=== PATIENT | female | born 1955 | race Caucasian/White ===

== ENCOUNTER 2018-11-26 11:31 | Emergency (ER) | payer MEDICARE, BC ==
--- NOTE | 2018-11-26 11:48 | Emergency Department Record ---
History of Present Illness - General Chief complaint: Pain Stated complaint: PAIN/SWELLING ON LEFT SIDE OF HEAD Time Seen by Provider: 11/26/18 11:42 Source: Patient Mode of Arrival: Ambulatory Limitations: No limitations - History of Present Illness Initial comments: 63 yo female presents with a pain and perceived swelling of the left tenriism radiating to the anterior left ear and left jaw. No fever or infection. No dental pain. NO vision changes. She states the symptoms have been ongoing 2 days. She reports she moved from [place] a month ago. 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 She moved to [place] without a current PCP. The hemangioma was discovered about 8 months ago after 4 months of pain. She underwent radiation until last June without improvement. She has seen specialist at her hospital in [place] and at [facility] 2 months ago. She has been told regarding the hemagioma the surgery is too risky and she relates she has been told there are not good options at this time. She states the symptoms of pain and altered nerve sensation are fairly stable and unchanged. MD Complaint: Other Onset/Timin -: Days(s) Location: Other History of Same: No Radiation: None Severity scale (1-10): 10 Quality: Dull Consistency: Constant Improves with: Nothing Worsens with: Nothing Associated Symptoms: Denies other symptoms - Related Data Home Medications Medication Instructions Recorded Confirmed Last Taken Gabapentin [Neurontin] 300 mg PO BID 11/26/18 11/26/18 Unknown Levothyroxine Sodium [Synthroid] 150 mcg PO DAILY 11/26/18 11/26/18 Unknown Omeprazole 40 mg PO DAILY 11/26/18 11/26/18 Unknown Ondansetron HCl [Zofran] 4 mg PO DAILY 11/26/18 11/26/18 Unknown Rivaroxaban [Xarelto] 20 mg PO DAILY 11/26/18 11/26/18 Unknown Rosuvastatin Calcium [Crestor] 10 mg PO DAILY 11/26/18 11/26/18 Unknown Previous Rx's Medication Instructions Recorded Methylprednisolone [Medrol Dose 0 mg PO UD #1 tab.ds.pk 11/26/18 Pack] Allergies Allergy/AdvReac Type Severity Reaction Status Date / Time hydromorphone [From Dilaudid] Allergy BEHAVIORAL Verified 11/26/18 11:42 CHANGES Travel Screening - Travel/Exposure Within Last 30 Days Have you traveled within the last 30 days?: No Review of Systems Constitutional: Denies: Chills, Fever, Malaise, Weakness Eyes: Denies: Eye discharge, Eye pain, Photophobia, Vision change ENT: Denies: Congestion, Dental pain, Ear pain, Throat pain Respiratory: Denies: Cough, Dyspnea, Hemoptysis, Stridor, Wheezes Cardiovascular: Denies: Chest pain, Palpitations, Syncope Endocrine: Denies: Fatigue Gastrointestinal: Denies: Abdominal pain, Diarrhea, Nausea, Vomiting Genitourinary: Denies: Dysuria, Urgency Musculoskeletal: Denies: Arthralgia, Back pain, Joint swelling, Myalgia Skin: Denies: Bruising, Change in color, Rash Neurological: Reports: Headache. Denies: Abnormal gait, Confusion, Numbness, Paresthesias, Seizure, Tingling, Tremors, Vertigo, Weakness Psychiatric: Denies: Anxiety Hematological/Lymphatic: Denies: Blood Clots, Easy bleeding, Easy bruising, Swollen glands Past Medical History - SOCIAL HISTORY Smoking Status: Never smoker Alcohol Use: None Drug Use: None - RESPIRATORY Hx Respiratory Disorders: Yes Hx Pulmonary Embolism: Yes - CARDIOVASCULAR Hx Cardio Disorders: No - NEURO Hx Neuro Disorders: No - GI Hx GI Disorders: No - Hx Genitourinary Disorders: No - ENDOCRINE Hx Endocrine Disorders: No - MUSCULOSKELETAL Hx Musculoskeletal Disorders: Yes - PSYCH Hx Psych Problems: No - HEMATOLOGY/ONCOLOGY Hx Hematology/Oncology Disorders: Yes Hx Cancer: Yes Hx Chemotherapy: No Hx Radiation Therapy: Yes Family Medical History Any Significant Family History?: No Physical Exam - General General Appearance: Alert, Oriented x3, Cooperative, No acute distress, Other ( Well appearing, NAD) - Head Head exam: Atraumatic, Normocephalic, Normal inspection Head exam detail: Other (Normal inspection, no rash, no tenderness, no swelling in the area of concern). negative: Abrasion, Contusion, Hematoma, Laceration - Eye Eye exam: Normal appearance, PERRL, EOMI. negative: Conjunctival injection, Nystagmus, Periorbital swelling, Periorbital tenderness, Scleral icterus - ENT ENT exam: Normal exam, Mucous membranes moist, Normal external ear exam, Normal orophraynx, TM's normal bilaterally. negative: Mucous membranes dry Ear exam: Normal external inspection. negative: Auricular hematoma, Auricular trauma, External canal tenderness Nasal Exam: Normal inspection. negative: Active bleeding, Discharge, Dried blood Mouth exam: Normal external inspection, Tongue normal. negative: Drooling, Muffled voice, Tongue elevation, Trismus Teeth exam: Normal inspection Throat exam: Normal inspection. negative: Tonsillar erythema, Tonsillomegaly, R peritonsillar mass, L peritonsillar mass - Neck Neck exam: Normal inspection, Full ROM. negative: Lymphadenopathy, Meningismus , Tenderness, Thyromegaly - Respiratory Respiratory exam: Normal lung sounds bilaterally. negative: Respiratory distress - Cardiovascular Cardiovascular Exam: Regular rate, Normal rhythm, Normal heart sounds - GI/Abdominal GI/Abdominal exam: Soft. negative: Tenderness - Rectal Rectal exam: Deferred - exam: Deferred - Extremities Extremities exam: Normal inspection. negative: Pedal edema, Tenderness - Back Back exam: Denies: CVA tenderness (R), CVA tenderness (L) - Neurological Neurological exam: Alert, CN II-XII intact, Normal gait, Oriented X3, Reflexes normal, Other (No PND, Normal FTN, No ataxia). negative: Abnormal gait, Altered , Motor sensory deficit - Psychiatric Psychiatric exam: Normal affect, Normal mood. negative: Agitated, Anxious - Skin Skin exam: Dry, Intact, Normal color, Warm Course Vital Signs 11/26/18 11:34 Temperature 97.7 F Pulse Rate 69 Respiratory 20 Rate Blood Pressure 141/75 Pulse Ox 100 - Reevaluation(s) Reevaluation #1: 11/26/18 12:20 The CBC was normal The C-RP was normal The BMP was normal 11/26/18 12:50 The ESR was reviewed. It was normal 11/26/18 12:50 We spoke at length regarding the normal examination and normal test results that were performed. I do not find and acute emergent condition. I have strongly encouraged her to get a local PCP to help her navigate the need for referrals and specialist, further future tests. I have also encouraged her to go back to [facility] for evaluation given she has a doctor patient relationship there. 11/26/18 12:[address] scan of the head was negative for acute process such as hemorrhage, infarct or mass. Incidental findings noted in radiologist voice clip report. Medical Decision Making - Lab Data Result diagrams: 11/26/18 11:50 11/26/18 11:50 Disposition Disposition: Discharge Clinical Impression: Headache Qualifiers: Headache type: unspecified Headache chronicity pattern: unspecified pattern Intractability: not intractable Qualified Code(s): R51 - Headache Disposition: Home, Self-Care Condition: (1) Good Instructions: General Headache (ED) Additional Instructions: Call today to set up a new Family Doctor appointment Call your specialist at [facility] for follow up of your symptoms Been see immediately if worse, any new symptoms or concerns that develop Prescriptions: Methylprednisolone [Medrol Dose Pack] 0 mg PO UD #1 tab.ds.pk Forms: Patient Portal Access Time of Disposition: 13:04 Quality - Quality Measures Quality Measures: N/A - Blood Pressure Screening Does Patient Have Any of the Following: No Blood Pressure Classification: Normal BP Reading Systolic Measurement: 118 Diastolic Measurement: 77 Screening for High Blood Pressure: < Normal BP, F/U Not Required > [G8783]
[2018-11-26 11:57] LABS: BASO % 0.6 % (0-6); GRAN % 64.7 % (47-80); HEMATOCRIT 37.6 % (35.0-47.0); HEMOGLOBIN 12.1 gm/dl (11.6-16.0); LYMPH % 23.9 % (16-45); MEAN CELL VOLUME 78.8 fl (81-97); MEAN CORPUSCULAR HEMOGLOBIN 25.4 pg (27-33); MEAN CORPUSCULAR HGB CONC 32.2 g/dl (32-36); MEAN PLATELET VOLUME 8.9 fl (7.4-10.4); MONO % 9.8 % (0-9); PLATELET COUNT 255 K/uL (130-400); RED BLOOD COUNT 4.77 M/uL (3.80-5.40); RED CELL DISTRIBUTION WIDTH 15.7 % (11.5-14.5)
[2018-11-26 12:07] LABS: BLOOD UREA NITROGEN 8 mg/dL (8-23)
[2018-11-26 12:08] LABS: CREATININE 0.7 mg/dL (0.5-0.9); EST GLOMERULAR FILTRATION RATE > 60 mL/min
[2018-11-26 12:10] LABS: GLUCOSE,RANDOM 78 mg/dL (74-109)
[2018-11-26 12:11] LABS: INR 1.3; PARTIAL THROMBOPLASTIN TIME 36.3 SECONDS (24.5-39.1); PROTHROMBIN TIME (PATIENT) 13.4 SECONDS (9.5-12.1)
[2018-11-26 12:13] LABS: C-REACTIVE PROTEIN 0.13 mg/dL (<0.5)
--- NOTE | 2018-11-30 08:44 | CT SCAN REPORT ---
EXAM: CT OF THE BRAIN WITHOUT CONTRAST HISTORY: LEFT SIDED HEAD PRESSURE AND NUMBNESS FOR FOUR DAYS. TECHNIQUE: Routine noncontrast CT of the brain was obtained. Comparison: None. FINDINGS: The ventricles and subarachnoid spaces are normal in size. There is a small right choroidal fissure cyst measuring 5 mm. No suspicious area of abnormally increased or decreased attenuation is noted throughout the brain substance. The phillips white junction is distinct. There is questionable minimal subcortical white matter lucency in the lateral left frontal lobe as seen on series 2 image 38. It is nonspecific, but likely an area of chronic small vessel ischemia. No abnormal extraaxial fluid collection nor skull fracture. The visualized paranasal sinuses and mastoid air cells are clear. The orbits as visualized are unremarkable. IMPRESSION: 1. NO CT EVIDENCE OF ACUTE MAJOR VESSEL INFARCT, INTRACRANIAL HEMORRHAGE NOR MASS. 2. 5 MM RIGHT CHOROIDAL FISSURE CYST. 3. QUESTIONABLE SMALL AREA OF SUBTLE LUCENCY IN THE SUBCORTICAL LATERAL LEFT FRONTAL WHITE MATTER. IF THIS IS REAL, IT IS NONSPECIFIC, BUT LIKELY CHRONIC SMALL VESSEL ISCHEMIA. JOB NUMBER: [id number] MTDD
== END 2018-11-26 13:15 | disposition home or self-care (01) ==
LOC: ER 11:31
DX: R51 Headache (principal); Z86.711 Personal history of pulmonary embolism
CPT/HCPCS: 70450; 80048; 85025; 85610; 85651; 85730; 86140; 99283; 99284

== ENCOUNTER 2019-08-24 08:56 | Emergency (ER) | payer MEDICARE, BC ==
[2019-08-24] MEDS ORDERED: ONDANSETRON HCL IV 4 MG/2 ML VIAL IV ONE (09:10)
[2019-08-24] MEDS ORDERED: 0.9 % SODIUM CHLORIDE 1,000 ML BAG IV ONE ×2 (09:10→10:10)
[2019-08-24] MEDS ORDERED: ACETAMINOPHEN 1,000 MG/100 ML BTL IVPB ONE (09:15)
--- NOTE | 2019-08-24 09:15 | Emergency Department Record ---
History of Present Illness - General Chief complaint: Nausea, Vomiting, Diarrhea Stated complaint: NAUSEA/VOMITING Time Seen by Provider: 08/24/19 09:09 Source: Patient Mode of Arrival: Ambulatory Limitations: No limitations - History of Present Illness Initial comments: The patient is here due to a 10 hour hx of frequent nausea, vomiting and loose watery stools. The patient feels the frequency is now decreasing. She does feel weak and dehydrated. The patient did get lightheaded about 7 hours ago and may have passed out after vomiting but her fiance who was with her states she was coherent throughout. She also may have bumped her head also and she is on Xarelto. The patient denies any CP, palpitations, SOB or visual changes but does have some upper AP which came on AFTER the vomiting. The patient has had multiple abdominal surgeries including a gastric sleeve, and gallbladder removal. MD complaint: Diarrhea, Nausea, Vomiting Onset/Timin -: Hour(s) - Related Data Home Medications Medication Instructions Recorded Confirmed Last Taken Tizanidine HCl [Zanaflex] 4 mg PO QHS 08/24/19 08/24/19 08/23/19 Previous Rx's Medication Instructions Recorded Promethazine HCl [Phenergan] 12.5 mg PO TID #15 tablet 08/24/19 Allergies Allergy/AdvReac Type Severity Reaction Status Date / Time hydromorphone [From Dilaudid] Allergy BEHAVIORAL Verified 08/24/19 09:13 CHANGES Review of Systems Constitutional: Reports: Malaise. Denies: Chills, Fever Eyes: Denies: Eye discharge ENT: Denies: Congestion Respiratory: Denies: Cough, Dyspnea Cardiovascular: Denies: Chest pain Endocrine: Reports: Fatigue Gastrointestinal: Reports: Diarrhea, Nausea, Vomiting Genitourinary: Denies: Dysuria Musculoskeletal: Denies: Arthralgia Neurological: Denies: Abnormal gait Past Medical History - SOCIAL HISTORY Smoking Status: Never smoker Drug Use: None - RESPIRATORY Hx Respiratory Disorders: Yes Hx Pulmonary Embolism: Yes - CARDIOVASCULAR Hx Cardio Disorders: No - NEURO Hx Neuro Disorders: No - GI Hx GI Disorders: No - Hx Genitourinary Disorders: No - ENDOCRINE Hx Endocrine Disorders: No - MUSCULOSKELETAL Hx Musculoskeletal Disorders: Yes - PSYCH Hx Psych Problems: No - HEMATOLOGY/ONCOLOGY Hx Hematology/Oncology Disorders: Yes Hx Cancer: Yes Hx Chemotherapy: No Hx Radiation Therapy: Yes Physical Exam - General General Appearance: Alert, Oriented x3, Cooperative, No acute distress - Head Head exam: Atraumatic, Normocephalic, Normal inspection - Eye Eye exam: Normal appearance, PERRL, EOMI - ENT Throat exam: Normal inspection. negative: Tonsillar erythema, Tonsillar exudate - Neck Neck exam: Normal inspection, Full ROM. negative: Tenderness - Respiratory Respiratory exam: Normal lung sounds bilaterally. negative: Respiratory distress - Cardiovascular Cardiovascular Exam: Regular rate, Normal rhythm, Normal heart sounds - GI/Abdominal GI/Abdominal exam: Soft, Normal bowel sounds. negative: Guarding, Rebound, Rigid, Tenderness - Extremities Extremities exam: Normal inspection, Full ROM, Normal capillary refill. negative: Tenderness - Back Back exam: Denies: Normal inspection - Neurological Neurological exam: Alert, Normal gait. negative: Abnormal gait, Motor sensory deficit - Psychiatric Psychiatric exam: negative: Anxious Course - Reevaluation(s) Reevaluation #1: The patient is doing a lot better at this time. She denies any further nausea and her vomiting and diarrhea have resolved. Presently she is taking ice chips with no problems and denies any AP. On exam her temp is 99.2 and her abdomen is very soft and nontender in all 4 quads. She feels much better and is ready for home. 08/24/19 10:23 Reevaluation #2: The patient is doing a lot better at this time. She has had no vomiting or diarrhea here in the ER over the last 2 hours. I did get an EKG on the patient which does have a borderline prolonged QT interval. The patient is on multiple medicines that can do that so we will stop the Zofran and start her on Phenerga n. She was advised to see her PCP for recheck when she returns to [place] next week and have another EKG done. 08/24/19 10:43 Medical Decision Making - Data Complexity MDM Data: Labs Ordered and/or Reviewed, X-Ray Ordered and/or Reviewed, EKG Ordered and/or Reviewed - Lab Data Result diagrams: 08/24/19 09:15 08/24/19 09:15 - EKG Data -: EKG Interpreted by Me EKG: No Acute Changes (Neg ST-T changes. Borderline prolonged QT interval.) - Radiology Data Radiology results: Report reviewed (Head and Cervical CT; Neg for any acute changes.) Disposition Disposition: Discharge Clinical Impression: Gastroenteritis Disposition: Home, Self-Care Condition: (2) Stable Instructions: Acute Nausea and Vomiting (ED) Additional Instructions: Please stop the Zofran and start the Phenergan ONLY when needed. Please see your doctor for recheck next week and have a 2nd EKG done. Return to the ER for any worsening symptoms. Prescriptions: Promethazine HCl [Phenergan] 12.5 mg PO TID #15 tablet Forms: Patient Portal Access Time of Disposition: 10:51 Quality - Quality Measures Quality Measures: N/A - Blood Pressure Screening View Details: Yes Does Patient Have Any of the Following: No Blood Pressure Classification: Pre-Hypertensive BP Reading Systolic Measurement: 128 Diastolic Measurement: 80 Screening for High Blood Pressure: < Pre-Hypertensive BP, F/U Documented > [G8950] Pre-Hypertensive Follow-up Interventions: Referral to alternative/primary care provider.
[2019-08-24 09:38] LABS: HEMATOCRIT 43.9 % (35.0-47.0); HEMOGLOBIN 14.8 gm/dl (11.6-16.0); MEAN CELL VOLUME 80.6 fl (81-97); MEAN CORPUSCULAR HGB CONC 33.7 g/dl (32-36); PLATELET COUNT 231 K/uL (130-400); RED BLOOD COUNT 5.45 M/uL (3.80-5.40); RED CELL DISTRIBUTION WIDTH 15.1 % (11.5-14.5); WHITE BLOOD COUNT W/O DIFF 8.7 K/uL (4.2-12.2)
[2019-08-24 09:45] LABS: BLOOD UREA NITROGEN 10 mg/dL (8-23); CREATININE 0.8 mg/dL (0.5-0.9); EST GLOMERULAR FILTRATION RATE > 60 mL/min
[2019-08-24 09:46] LABS: LIPASE 68 U/L (13-60); TOTAL PROTEIN 7.5 g/dL (6.6-8.7)
[2019-08-24 09:47] LABS: INR 1.1; PROTHROMBIN TIME (PATIENT) 11.7 SECONDS (9.5-12.1)
[2019-08-24 09:48] LABS: GLUCOSE,RANDOM 172 mg/dL (74-109); MEAN CORPUSCULAR HEMOGLOBIN 27.1 pg (27-33); PLATELET ESTIMATE NORMAL (NORMAL)
[2019-08-24 09:50] LABS: ALT/SGPT 17 U/L (<33)
[2019-08-24 09:51] LABS: ALBUMIN 4.6 g/dL (4.0-5.0); ALKALINE PHOSPHATASE 92 U/L (35-104); AST/SGOT 20 U/L (10.0-35.0); BILIRUBIN,DIRECT < 0.2 mg/dL (0-0.3)
--- NOTE | 2019-08-24 10:07 | CT SCAN REPORT ---
EXAMINATION: CT Head without IV Contrast EXAM DATE: 08/24/2019 10:00 AM TECHNIQUE: Standard protocol CT images of the head were obtained without intravenous contrast. Aggarwal l and sagittal reconstructed images were created. INDICATION: fall on Xarelto COMPARISON: CT head 11/26/2018 HAND DOMINANCE: Unknown. ENCOUNTER: Not applicable FINDINGS: 1. No intracranial mass effect, shift of midline structures, intra-axial or extra-axial hemorrhage, o r other extra-axial fluid collections. 2. Brain volume and ventricular size are appropriate for patient's stated age. No ventricular outflow obstruction. 3. Sorensen-white matter differentiation is preserved. No sulcal effacement. No suspicious areas of alter ed attenuation. 4. Midline structures and craniocervical junction are unremarkable. 5. Intracranial atherosclerotic calcifications are present. 6. No depressed or widely calvarial fractures. No aggressive calvarial lesions. 7. Visualized paranasal sinuses and temporal bone structures are well aerated. Unremarkable appearanc e of the orbital compartments. IMPRESSION: No acute intracranial abnormality to the limits of noncontrast CT technique. Dictated by: Lorna Carver MD on 08/24/2019 10:00 AM. .
--- NOTE | 2019-08-24 10:11 | CT SCAN REPORT ---
EXAMINATION: CT Cervical Spine without IV Contrast EXAM DATE: 08/24/2019 10:00 AM TECHNIQUE: Standard protocol cervical spine CT imaging was performed without intravenous contrast. Co preethi and sagittal images were reconstructed. INDICATION: Fall on Xarelto COMPARISON: No relevant comparison studies ENCOUNTER: Not applicable FINDINGS: The spine is seen from craniocervical junction to the T2-T3 level. Very mild dextroconvex curvature o f the cervical spine. No malalignment at the craniocervical junction. Cervical vertebral body heights and facet alignment are preserved. Solid anterior spinal fusion at C6-C7 with plate and screw fixation and intervening disc prosthesis. No hardware fractures or adjacent lucencies. No convincing cervical spine fracture to the limits of diffuse osseous demineralization. No cervical traumatic malalignment. No prevertebral soft tissue swelling. Mild degenerative changes in cervical spine without significant spinal canal stenosis or foraminal na rrowing. Lung apices are well-aerated. IMPRESSION: No cervical spine fracture to the limits of diffuse osseous demineralization. Solid anterior spinal f usion at C6-C7 without radiographic hardware complications. Dictated by: Lorna Carver MD on 08/24/2019 10:06 AM. .
== END 2019-08-24 11:04 | disposition home or self-care (01) ==
LOC: ER 08:56
DX: K52.9 Noninfective gastroenteritis and colitis, unspecified (principal); R11.2 Nausea with vomiting, unspecified
CPT/HCPCS: 99284 ×2; 96365; 96375; 83690; 85730; 85610; 80076; 86140; 80048; 84484; 85027; 72125; 70450; 93005; 93010; J2405; J7030